=== PATIENT | female | born 1995 | race Hispanic/Latino ===

== ENCOUNTER 2019-06-08 08:20 | Emergency (ER) | payer OTHER, SELFPAY ==
[2019-06-08 09:29] LABS: Bilirubin Negative (Negative); Blood, Urine Large (Negative); Clarity Slightly Cloudy (Clear); Glucose, Urine (Dipstick) Negative (Negative); Leukocyte Moderate (Negative); Nitrite Negative (Negative); Protein, Urine (Dipstick) 100 mg/dL (Neg-Trace)
[2019-06-08 09:48] LABS: Bacteria/HPF 3+ HPF (None Seen); WBC/HPF 21-50 HPF (0-3)
== END 2019-06-08 10:00 | disposition home or self-care (01) ==
LOC: SCSER 08:20
DX: O20.9 Hemorrhage in early pregnancy, unspecified (principal); O23.42 Unspecified infection of urinary tract in pregnancy, second trimester; Z3A.15 15 weeks gestation of pregnancy
CPT/HCPCS: 81003; 81015

== ENCOUNTER 2019-06-08 22:31 | Emergency (ER) | payer OTHER ==
[2019-06-08 23:32] LABS: #Eosinphils 0.3 thou/uL (0.0-0.7); #Lymphocytes 1.9 thou/uL (1.20-3.40); #Monocytes 1.2 thou/uL (0.11-0.59); #Neutrophils 5.1 thou/uL (1.40-6.50); %Basophils 0.3 % (0.0-1.0); %Eosinophils 3.5 % (0.0-10.0); %Lymphocytes 21.8 % (21.0-51.0); %Neutrophils 60.3 % (42.0-75.0); Hemoglobin 13.5 g/dL (12.0-16.0); Mean Corpuscular Hemoglobin 29.9 pg (27.0-31.0); Mean Corpuscular Volume 85.2 fL (78.0-98.0); Mean Platelet Volume 8.3 fL (7.4-10.4); Platelet Count 202 thou/uL (130-400); RBC Distribution Width 12.7 % (11.5-14.5); Red Blood Cell (RBC) Count 4.51 mill/uL (4.20-5.40); White Blood Cell (WBC) Count 8.5 thou/uL (4.8-10.8)
[2019-06-09 00:59] LABS: ALT (SGPT) 12 U/L (8-55); AST (SGOT) 15 U/L (5-34); Alkaline Phosphatase 60 U/L (40-150); Anion Gap 14 mmol/L (10-20); BUN (Urea Nitrogen) 10 mg/dL (7.0-18.7); Bilirubin, Total 0.3 mg/dL (0.2-1.2); Calc. Creatinine Clearance 0 mL/min (70-130); Calcium 9.7 mg/dL (7.8-10.44); Carbon Dioxide 21 mmol/L (22-29); Chloride 108 mmol/L (98-107); Estimated GFR-MDRD Greater than 90; Glucose 93 mg/dL (70-105); Potassium 3.9 mmol/L (3.5-5.1); Sodium 139 mmol/L (136-145)
--- NOTE | 2019-06-09 07:45 | ULT ---
PRELIMINARY REPORT/[facility]/EMERGENCY AFTER HOURS PROCEDURE EXAM: US First Trimester, Transabdominal and US , Transvaginal EXAM DATE/TIME: 06/09/2019 12:43 AM CLINICAL HISTORY: 23 years old, female; Lmp or gestational age (in weeks): 12w3d; Antepartum complications; complicated by abdominal or pelvic pain; Right lower quadrant; First trimester; ; Patient HX: Vaginal bleeding with clots, pelvic pain mostly to rlq TECHNIQUE: Imaging protocol: Real-time transabdominal obstetrical ultrasound of the maternal pelvis and a first trimester , less than 14 weeks 0 days, with image documentation. Transvaginal imaging was used for better evaluation of the fetus and adnexa. COMPARISON: No relevant prior studies available. FINDINGS: GESTATION: Gestation: There is an intrauterine gestational sac with pole (CRL: 54mm-12w7d), however there is no heart motion consistent with failure. MATERNAL: Uterus: Unremarkable. Cervix: Unremarkable. Right adnexa: Limited visualization due to bowel gas. Right adnexal fluid/questionable cystic lesion, not well seen. Left adnexa: Limited visualization due to bowel gas. Left ovary is not visualized. IMPRESSION: Failed . Right adnexal fluid/questionable cystic lesion. THIS REPORT CONTAINS FINDINGS THAT MAY BE CRITICAL TO PATIENT CARE. The findings were verbally communicated via telephone conference with John Youssef at 3:30 4 AM CDT on 06/09/2019. The findings were acknowledged and understood. Thank you for allowing us to participate in the care of your patient. Dictated and Authenticated by: Lenin Velasquez MD 06/09/2019 3:37 AM Central Time ([place] & [place]) FINAL REPORT TRANSABDOMINAL AND TRANSVAGINAL PELVIC ULTRASOUND WITH DOPPLER:: I agree with the preliminary report report given by Dr. Velasquez of [facility]. Transcribed Date/Time: 06/09/2019 11:41 AM
== END 2019-06-09 04:57 | disposition home or self-care (01) ==
LOC: ERS 22:31
DX: O02.1 Missed abortion (principal)
CPT/HCPCS: 36415; 76856; 80053; 84702; 85025; 86900; 86901

== ENCOUNTER 2019-06-09 22:48 | Emergency (ER) | payer OTHER ==
[2019-06-09 23:46] LABS: Bilirubin Large (Negative); Blood, Urine Large (Negative); Glucose, Urine (Dipstick) 100 mg/dL (Negative); Leukocyte Large (Negative); Nitrite Negative (Negative); Protein, Urine (Dipstick) > or equal to 300 mg/dL (Neg-Trace)
[2019-06-09 23:47] LABS: RBC/HPF Greater than 50 HPF (0-3); Squamous Epithelial 0-3 HPF (0-3); WBC/HPF 21-50 HPF (0-3)
[2019-06-10 00:43] LABS: #Eosinphils 0.1 thou/uL (0.0-0.7); #Lymphocytes 1.5 thou/uL (1.20-3.40); #Monocytes 1.2 thou/uL (0.11-0.59); #Neutrophils 13.2 thou/uL (1.40-6.50); %Basophils 0.1 % (0.0-1.0); %Eosinophils 0.6 % (0.0-10.0); %Lymphocytes 9.2 % (21.0-51.0); %Monocytes 7.4 % (0.0-10.0); %Neutrophils 82.7 % (42.0-75.0); Mean Corpuscular HGB CONC 35.1 g/dL (32.0-36.0); Mean Corpuscular Hemoglobin 30.1 pg (27.0-31.0); Mean Corpuscular Volume 85.8 fL (78.0-98.0); Mean Platelet Volume 8.4 fL (7.4-10.4); Platelet Count 226 thou/uL (130-400); RBC Distribution Width 12.9 % (11.5-14.5); White Blood Cell (WBC) Count 15.9 thou/uL (4.8-10.8)
[2019-06-10] MEDS ORDERED: traMADol HCl 50 MG TAB ONE (01:01)
== END 2019-06-10 02:12 | disposition home or self-care (01) ==
LOC: ERS 22:48
DX: O03.38 Urinary tract infection following incomplete spontaneous abortion (principal); Z79.899 Other long term (current) drug therapy
CPT/HCPCS: 36415; 81003; 81015; 84702; 85025; 87086; 99284

== ENCOUNTER 2020-07-19 06:55 | Inpatient (IN) | payer MEDICAID, OTHER ==
[2020-07-19 07:37] VITALS: BMI 30.7
[2020-07-19] MEDS ORDERED: Promethazine HCl 25 MG/ML VIAL IM PRN ×2 (07:58→10:41)
[2020-07-19] MEDS ORDERED: Misoprostol 200 MCG TAB PR PRN (07:58)
[2020-07-19] MEDS ORDERED: Carboprost 250 MCG/ML AMP IM PRN (07:58)
[2020-07-19] MEDS ORDERED: Diphenoxylate HCl/Atropine Tablet PO PRN (07:58)
[2020-07-19] MEDS ORDERED: Lidocaine 1% (PF) 30 ML VIAL SC PRN (07:58)
[2020-07-19] MEDS ORDERED: NS / Oxytocin 40 units/1000ml 1,000 ML IV PRN (07:58)
[2020-07-19] MEDS ORDERED: hydrALAZINE 20 MG/ML VIAL SLOW IVP PRN ×2 (07:58→16:40)
[2020-07-19] MEDS ORDERED: Ondansetron PF 4 MG/2 ML Vial IVP PRN ×3 (07:58→16:40)
[2020-07-19] MEDS ORDERED: Methylergonovine 0.2 MG/ML VIAL IM PRN ×2 (07:58→16:40)
[2020-07-19] MEDS ORDERED: Ibuprofen 800 MG TAB PO PRN (07:58)
[2020-07-19] MEDS ORDERED: NS w/ Oxytocin 10 units 500 ML IV SCH (08:00)
--- NOTE | 2020-07-19 08:05 | PDOC.FPROB ---
FMR OB H&P: HPI - History of Present Illness Chief Complaint: contractions History of Present Illness: Patient is a @ 39.1wk by 11.6wk santiago, BITA 07/25/2020 who presented to the ED with contractions that started yesterday afternoon around 4pm, having them every 5-10 minutes. She reports baby is active, denies LOF, VB, notes mild white vaginal discharge. Primary Care Physician: Girish ORTIZ FMR OB H&P: Current - Care : 4 Para: 1021 Gestational age: 39.1 weeks Due date: 07/25/2020 Dating Criteria: 07/25/2020 - OB Labs RH: negative Antibody Screen: negative HIV: negative RPR: negative HepBsAg: negative Rubella: immune Gonorrhea: negative Chlamydia: negative Pap Smear: NILM 10/19/2019 3 hour GTT: 78/108/92 GBS: negative H&H: 12.5/36 Platelets: 218 - First Trimester Ultrasound First trimester: 11.6 weeks - Anatomy Survey Anatomy survey: 05/01/2020 FMR OB H&P: History - Past Medical History PMH: none - OB History OB History: Previous delivery was at term, only complication was 3rd degree laceration - CAKE PULLER History CAKE PULLER History: NILM 10/19/2019 - Surgical History Sx History: none - Social History Social History: Denies smoking, alcohol or drug use - Family History Family History: none FMR OB H&P: Medications - Current Home Medications: Medication Instructions Recorded Confirmed Type Vitamin 1 tab PO DAILY #0 tab 05/21/15 07/19/20 Rx Allergies/Adverse Reactions: Allergies Allergy/AdvReac Type Severity Reaction Status Date / Time No Known Allergies Allergy Verified 05/20/15 06:34 FMR OB H&P: ROS - Review of Systems General: denies: fever/chills, weight/appetite/sleep changes ENT: denies: nasal congestion, rhinorrhea Cardiovascular: denies: chest pain, palpitation Respiratory: denies: cough, congestion Gastrointestinal: denies: abdominal pain, indigestion, diarrhea, constipation Genitourinary (Female): reports: dysuria, vaginal discharge, contractions. denies: incontinence, vaginal bleeding Musculoskeletal: denies: pain, stiffness Neurologic: denies: numbness, syncope Integumentary: denies: itching, rash Breast: denies: lumps, bumps Hematologic/Lymphatic: denies: prolonged or excessive bleeding, enlarged lymph nodes Psychological: denies: depression, anxiety FMR OB H&P: Vital Signs - Maternal Vital signs: 128/76, 94bpm, 98.3F - Heart Tones Baseline: 130 Variability: moderate Acceleration: present Deceleration: absent Category: category 1 [place] contractions every: 3-4 min FMR OB H&P: Physical Exam - Physical Exam General: NAD HEENT: normocephalic and atraumatic, PERRLA Neck: supple, FROM Chest: non-tender to palpation, no lesions Breast: symmetric, no skin changes Heart: RRR, no murmurs/rubs/gallops General: CTAB, no respiratory distress Abdomen: soft, gravid, non-tender Musculoskeletal: FROM in all four extremities Neurological: sensation to pain,touch and proprioception grossly normal Skin: no rash Lymphatic: no unusual bruising or bleeding, no purpura Psychiatric: intact recent and remote memory - Pelvic Exam SVE: /0 Membranes: intact FMR OB H&P: A/P Discussion: Date/Time: 07/19/20 08 Patient is a @ 39.1wk by 11.6wk santiago, BITA 07/25/2020 who presented to the ED with contractions that started yesterday afternoon around 4pm, having them every 5-10 minutes. Term labs negative, GBS negative US 06/29 [place] of 53.5% FHTs: heart rate 130, cat I strip: moderate variability, +accels, -decels, estela q3-4 min - 80/0 @ 0745 - received epidural 0900 - 80/0 @ 0920 - will recheck @ 1220, if no change will consider AROM Dysuria - UA ordered Hx of 3rd degree laceration 05/20/2015 - MD aware This H&P was discussed with Dr. Pearson who agree with the above documentation and plan. Addendum - Attending - Attending Attestation Date/Time: 07/19/20 2741 I personally evaluated the patient and discussed the management with Dr. Gonzalez I agree with the History, Examination, Assessment and Plan documented above with any addition or exceptions noted below.
[2020-07-19] MEDS: Lactated Ringer's 1,000 ML IV SCH ×2 (08:17→08:37)
[2020-07-19 08:19] LABS: Hemoglobin 13.6 g/dL (12.0-16.0); Mean Corpuscular HGB CONC 34.2 g/dL (32.0-36.0); Mean Corpuscular Hemoglobin 30.5 pg (27.0-31.0); Platelet Count 212 thou/uL (130-400); RBC Distribution Width 12.5 % (11.5-14.5); Red Blood Cell (RBC) Count 4.47 mill/uL (4.20-5.40); White Blood Cell (WBC) Count 9.8 thou/uL (4.8-10.8)
[2020-07-19] MEDS ORDERED: Fentanyl 4 mcg/Bup 0.1% Cadd 100 ML ONE (08:21)
[2020-07-19] MEDS ORDERED: FLU VACC QS2020-21(6MOS UP)/PF 60 MCG/0.5 ML SYRINGE IM ONE (08:30)
[2020-07-19 08:59] LABS: Syphilis Antibody Nonreactive (Nonreactive); Syphilis Antibody Index 0.04 S/CO (<1.00 Non-Reactive)
[2020-07-19 09:00] LABS: HBSAg Index 0.12 S/CO (0-0.99); Hep B Surf Ag Non-Reactive S/CO (NonReactive)
[2020-07-19] MEDS ORDERED: Acetaminophen 325 MG TAB PO PRN (10:41)
[2020-07-19] MEDS ORDERED: diphenhydrAMINE 50 MG/ML VIAL IVP PRN (10:41)
[2020-07-19] MEDS ORDERED: Naloxone HCl 0.4 mg/ml Vial IVP PRN ×2 (10:41)
[2020-07-19] MEDS ORDERED: Lactated Ringer's 500 ML IV PRN (10:41)
[2020-07-19] MEDS ORDERED: EPHEDRINE 25 MG/5 ML SYRINGE SLOW IVP PRN (10:41)
[2020-07-19] MEDS ORDERED: Communication Order-Pharmacy FS SCH (10:45)
[2020-07-19] MEDS ORDERED: Fentanyl 4 mcg/Bupivacaine 0.1% Cassette 100 ML EPIDURAL SCH (10:45)
--- NOTE | 2020-07-19 12:52 | PDOC.LDPN ---
Labor & Delivery Progress Note - Subjective Subjective: comfortable - Objective Vital signs reviewed and normal: yes General: NAD Uterine fundus: non tender Dilation: 6 Effacement: 90% Station: 0 FHT: category 1, variability present [place] contractions every: 3-4 min - Assessment (1) Normal labor Code(s): O80 - ENCOUNTER FOR FULL-TERM UNCOMPLICATED DELIVERY; Z37.9 - OUTCOME OF DELIVERY, UNSPECIFIED Current Visit: Yes Status: Acute -: Term labs negative, GBS negative US 06/29 [place] of 53.5% FHTs: heart rate 130, cat I strip: moderate variability, +accels, -decels, estela q3-4 min - 80/0 @ 0745 - received epidural 0900 - 80/0 @ 0920 - will recheck @ 1220 - 80/0 @ 1220, plan to AROM if no change in next 30-60min Dysuria - UA ordered Hx of 3rd degree laceration 05/20/2015 - aware
[2020-07-19] MEDS ORDERED: Lidocaine 1% (PF) 30 ML VIAL ONE (13:14)
[2020-07-19] MEDS ORDERED: NS / Oxytocin 40 units/1000ml 1,000 ML ONE (13:15)
[2020-07-19] MEDS ORDERED: Bupivacaine/Epinephrine 0.25% 30 ML VIAL ONE (14:33)
[2020-07-19 15:10] LABS: Bacteria/HPF None Seen HPF (None Seen); Bilirubin Negative (Negative); Blood, Urine 3+ (Negative); Clarity Clear (Clear); Glucose, Urine (Dipstick) Normal (Negative); Ketone, Urine 10 mg/dL (Negative); Leukocyte Negative Leu/uL (Negative); Mucous/LPF 1+ LPF (<2+); Nitrite Negative (Negative); Protein, Urine (Dipstick) 20 mg/dL (Neg-Trace); RBC/HPF Greater than 50 HPF (0-3); Specific Gravity, Urine 1.017 (1.002-1.036); Squamous Epithelial 0-3 HPF (0-3); Urobilinogen Normal mg/dL (Less than 2); WBC/HPF 0-3 HPF (0-3); pH, Urine 6.5 (5.0-9.0)
--- NOTE | 2020-07-19 16:00 | PDOC.OPDEL ---
OB Operative/Delivery Note - Additional Findings/Plan Compilations/Other Findings: Delivering Physician: Dr. Gonzalez/Girish Attending: Dr. Pearson Procedure: Spontaneous Vaginal Delivery Anesthesia: epidural QBL: 250 ml Pre-op Diagnosis: 1. Term intrauterine in labor 2. Hx of 3rd degree laceration Post-op Diagnosis: 1. Term intrauterine , delivered 2. same as above Indications: A 25y/o female presents in active labor. Delivery Note: This is 25yo @ 39.1wks who delivered a viable F infant at 1421 on 07/19/2020. Following an uneventful antepartum course, a vigorous F was delivered over an intact perineum in the occipitoposterior position. Anterior Shoulder and then remainder of the body delivered. No nuchal cord. The head was held down and mouth and nares were bulb suctioned. Cord clamped and cut and cord blood collected. Placenta delivered intact with a 3 vessel cord noted. Fundal massage was performed and the fundus was firm. The cervix and vagina were inspected and a second degree laceration was found on the perineum and there was a left vaginal wall stellate that tunneled under vaginal wall mucosa. We attempted to reapproximate but were unsuccessful. Dr. Gay was consulted to evaluate patient and assist with closing. Laceration was repaired with 3-0 Vicryl suture with good approximation and hemostasis. Rectal exam was perform and no suture or laceration was palpated. went to nursery in good condition for routine care. Apgars were 8/9. Patient tolerated procedure well and went to after routine recovery/care. ATTENDING ADDENDUM: I was present for and supervised critical portions of the procedure. Dr. Gay was asked to evaluate and assist with closure of the vaginal laceration due to the complex nature of it. I agree with the above documentation otherwise.
[2020-07-19] MEDS ORDERED: Preparation H Ointment 28 GM TUBE PR PRN (16:40)
[2020-07-19] MEDS ORDERED: Misoprostol 200 MCG TAB VAG PRN (16:40)
[2020-07-19] MEDS ORDERED: Milk Of Magnesia 30 ML UDCUP PO PRN (16:40)
[2020-07-19] MEDS ORDERED: Adacel (T-DAP) 0.5 ML SYRINGE IM ONE (16:40)
[2020-07-19] MEDS ORDERED: Bisacodyl 10 MG SUPP PR PRN (16:40)
[2020-07-19] MEDS ORDERED: NS / Oxytocin 40 units/1000ml 1,000 ML IV SCH (16:40)
[2020-07-19] MEDS ORDERED: Lanolin Ointment 7 GM TUBE TOP PRN (16:40)
[2020-07-19] MEDS: Ibuprofen 800 MG TAB PO SCH (17:51)
[2020-07-19 19:08] LABS: SARS-CoV-2 MS2 Positive; SARS-CoV-2 N Gene Negative; SARS-CoV-2 S Gene Negative; SARS-CoV-2 by NAA Not Detected (NotDetected); SARS-CoV-2 orf1ab Negative
[2020-07-19] MEDS: Docusate Calcium (SURFAK) 240 MG CAP PO SCH (21:48)
[2020-07-20] MEDS: Ibuprofen 800 MG TAB PO SCH ×2 (01:01→10:27)
[2020-07-20 06:08] LABS: Hemoglobin 12.1 g/dL (12.0-16.0)
--- NOTE | 2020-07-20 07:23 | PDOC.PP ---
Post Progress Note Post Day #: 1 Subjective: Feeling well this morning. Has about 100 mL of blood loss overnight to bring total QBL to 400 mL. Was able to tolerate eating meals yesterday without issues. Has passed gas but no BM yet. Planning on Nexplanon for contraception. PO intake tolerated: yes Flatus: yes Ambulation: yes Vital Signs (12 hours) Temp Pulse Resp BP Pulse Ox 07/20/20 05:15 98.3 F 68 18 101/55 L 07/20/20 01:00 98.3 F 61 18 113/58 L 07/19/20 19:36 98.1 F 85 16 109/59 L 97 Weight Weight 86.183 kg - Physical Examination General: NAD Cardiovascular: no m/r/g, RRR Respiratory: clear to auscultation bilaterally, non-labored breathing Abdominal: + bowel sounds, no distention, appropriately TTP Extremities: negative homans (B) Skin: no rash Neurological: no gross focal deficits Psychiatric: A&Ox3, normal affect Result Diagrams: 07/20/20 05:38 Additional Labs: Post Labs Hep Bs Antigen Non-Reactive S/CO (NonReactive) 07/19/20 08:09 Blood Type A POSITIVE 07/19/20 08:09 (1) Second-degree perineal laceration, Code(s): O70.1 - SECOND DEGREE PERINEAL LACERATION DURING DELIVERY Status: Acute (2) Term delivered Code(s): O80 - ENCOUNTER FOR FULL-TERM UNCOMPLICATED DELIVERY Status: Acute - Assessment/Plan 25 yo @ 39.1wk by 11.6wk santiago is s/p on 07/19/2020 at 1421: Term , now delivered -delivered 07/20 AT 1421, with 2nd degree laceration repair -QBL 400 mL - labs negative, GBS negative -continue routine care -Ibuprofen for pain control Second Degree Laceration repair -aware, repair appears normal on exam this morning -pain control as above Diet: Regular VTE: SCDs Code status: FULL Dispo: Stable, admitted to inpatient on wom[facility] member unit. Continue routine post- care. Discharge to home later this after pending baby's bilirubin lab. Addendum - Attending - Attending Attestation Date/Time: 07/20/20 1047 I personally evaluated the patient and discussed the management with Dr. Stout. I agree with the History, Examination, Assessment and Plan documented above with any addition or exceptions noted below.
[2020-07-20] MEDS: Ferrous Sulfate 325 MG TAB PO SCH ×2 (08:30→09:09)
[2020-07-20] MEDS: Docusate Calcium (SURFAK) 240 MG CAP PO SCH (08:31)
[2020-07-20 11:47] VITALS: BP 98/57; TEMP 98.3
== END 2020-07-20 17:09 | disposition home or self-care (01) | DRG 807 ==
LOC: L&D/OP 06:55 → L&D 07:59 → 3SW 18:11
PROVIDERS: ADMIT Family Medicine; ATTEND Family Medicine
PROC: 10E0XZZ Delivery of Products of Conception, External Approach (ICD-10-PCS; principal; 2020-07-19)
PROC: 0KQM0ZZ Repair Perineum Muscle, Open Approach (ICD-10-PCS; 2020-07-19)
DX: O75.89 Other specified complications of labor and delivery (principal); Z37.0 Single live birth; Z3A.39 39 weeks gestation of pregnancy; O70.1 Second degree perineal laceration during delivery; R30.0 Dysuria; Z20.828 Contact with and (suspected) exposure to other viral communicable diseases
CPT/HCPCS: 36415; 51702; 81001; 85014; 85018; 85027; 86780; 86850; 86900; 86901; 87340; 87635; 99285; J2001; U0003